=== PATIENT | female | born 1970 | race Caucasian/White ===

== ENCOUNTER 2020-07-06 19:09 | Emergency (ER) | payer OTHER, BC, SELFPAY ==
[2020-07-06 19:45] VITALS: BP 140/90; PULSE 71; RESP 16; TEMP 36.6; O2SAT 100
--- NOTE | 2020-07-06 20:04 | ED.GENADULT ---
HPI - General Adult General Chief complaint: Upper Respiratory Infection Stated complaint: Sore throat Time Seen by Provider: 07/06/20 20:04 Source: patient Mode of arrival: ambulatory Limitations: no limitations History of Present Illness HPI narrative: 49-year-old female patient presents to the [facility] with complaints of right-sided throat pain. Patient states that started today after she was eating lunch. Patient states that she felt like she swallowed something wrong where she felt like something got caught in the bottom of her throat. Patient states when she was younger she used to get tonsil stones a lot which felt very similar. Patient states that she tried to cough it out and ended up having a little bit of blood noted. Patient denies any fevers, runny nose. Denies any chest pain, shortness breath, abdominal pain, nausea, vomiting or diarrhea. Related Data Home Medications Medication Instructions Recorded Confirmed biotin 1 mg capsule 1 mg PO DAILY 05/11/20 05/11/20 calcium carbonate 600 mg (1,500 1 tablet PO DAILY 05/11/20 05/11/20 mg)-vitamin D3 200 unit tablet cranberry 500 mg capsule 500 mg PO DAILY cap 05/11/20 05/11/20 [id number] ac 400 1 tablet PO DAILY tablet 05/11/20 05/11/20 mcg-calcium carb 500 mg-vit K1 20 mcg tablet Allergies Allergy/AdvReac Type Severity Reaction Status Date / Time Sulfa (Sulfonamide Allergy Unknown Verified 10/07/19 07:56 Antibiotics) Review of Systems Review of Systems: Narrative: CONSTITUTIONAL: Denies fever, chills, or sweats. EYES: Denies visual changes, redness, or discharge. ENT: Denies rhinorrhea, congestion, positive sore throat, or otalgia. CARDIOVASCULAR: Denies chest pain, palpitations, or edema. RESPIRATORY: Denies cough or dyspnea. GASTROINTESTINAL: Denies abdominal pain, nausea, vomiting, or diarrhea. GENITOURINARY: Denies dysuria or hematuria. SKIN: Denies rash or itching. MUSCULOSKELETAL: Denies back pain, joint pain, or myalgia. NEUROLOGIC: Denies headache, numbness, or weakness. PSYCHIATRIC: Denies anxiety or depression. [facility] Family History Family History Other Depression Diabetes mellitus Family history of arthritis Family history of chronic obstructive pulmonary disease Family history of mental disorder Social History Social History Alcohol intake: current Comments At the time of my signature I agree with nursing past medical history, surgical, social, and family history. There is no relevant family history pertinent to the presenting complaint. Exam Narrative: Exam Narrative: GENERAL: Well-appearing, well-nourished, and in no acute distress. HEAD: Normocephalic, atraumatic. EYES: PERRLA and EOMI. ENT: Nares clear, no rhinorrhea or epistaxis. Mucous membranes moist. Posterior pharynx with very slight erythema noted to the right tonsil. No enlargement no exudates or lesions present. Bilateral TMs are clear with no erythema or foreign bodies in the canal. NECK: Supple. No lymphadenopathy CHEST: Clear to auscultation. No respiratory distress. HEART: Regular rate and rhythm. No murmur heard. Normal peripheral pulses. ABDOMEN: Soft, nontender, nondistended, normal active bowel sounds. EXTREMITIES: Normal range of motion. No edema. SKIN: Warm, dry, no rash. NEURO: No focal deficits. Alert and oriented x3. Course Vital Signs Vital signs: Vital Signs Temperature 36.6 C 07/06/20 19:45 Pulse Rate 71 07/06/20 19:45 Respiratory Rate 16 07/06/20 19:45 Blood Pressure 140/90 07/06/20 19:45 Pulse Oximetry 100 07/06/20 19:45 Temperature 36.6 C 07/06/20 19:45 Pulse Rate 71 07/06/20 19:45 Respiratory Rate 16 07/06/20 19:45 Blood Pressure 140/90 07/06/20 19:45 Pulse Oximetry 100 07/06/20 19:45 Vital signs reviewed. The patient has been informed that they may have pre-hyper
== END 2020-07-06 20:50 | disposition home or self-care (01) ==
PROVIDERS: Emergency Provider Nurse Practitioner Family; PCP Physician Assistant
DX: J02.9 Acute pharyngitis, unspecified (principal); E05.90 Thyrotoxicosis, unspecified without thyrotoxic crisis or storm
CPT/HCPCS: 87081; 87880; 99213; G0463

== ENCOUNTER 2021-12-11 10:16 | Outpatient (CLI) | payer OTHER, BC, SELFPAY ==
[2021-12-11 12:48] LABS: Anion Gap 12 mmol/L (8-16); Blood Urea Nitrogen 11 mg/dL (7-17); Calcium 9.7 mg/dL (8.4-10.2); Carbon Dioxide 26 mmol/L (22-30); Chloride 101 mmol/L (98-107); Estimated Glomerular Filt Rate > 60; Glucose 201 mg/dL (65-110); HDL Direct 45 mg/dL; Potassium 4.1 mmol/L (3.4-5.0); Sodium 139 mmol/L (137-145)
[2021-12-11 13:00] LABS: LDL Cholesterol Direct 149 mg/dL
[2021-12-11 13:04] LABS: Free T4 Free Thyroxine 1.36 ng/mL (0.78-2.19)
[2021-12-11 13:19] LABS: Thyroid Stimulating Hormone 0.316 uIU/mL (0.465-4.680)
[2021-12-11 13:42] LABS: Vitamin B12 > 1000.0 pg/mL (239-931)
[2021-12-11 14:01] LABS: Creatinine Urine 58.9 mg/dL
[2021-12-11 17:49] LABS: MALB Creatinine Ratio < 10.2 mg/g (0-30); Microalbumin Urine Random < 6.0 mg/L (0-16.7)
[2021-12-13 12:27] LABS: C-Peptide 2.48 ng/mL (0.80-3.85)
[2021-12-15 07:17] LABS: Glutamic acid decarboxylase AA >250 IU/mL (<5)
== END 2021-12-11 10:17 | disposition home or self-care (01) ==
LOC: ANHWCLAB 10:20
PROVIDERS: PCP Physician Assistant; Visit Provider Internal Medicine Endocrinology, Diabetes & Metabolism
DX: E11.65 Type 2 diabetes mellitus with hyperglycemia (principal); E05.90 Thyrotoxicosis, unspecified without thyrotoxic crisis or storm; L80 Vitiligo; E04.9 Nontoxic goiter, unspecified
CPT/HCPCS: 36415; 80048; 82043; 82607; 83718; 83721; 84439; 84443; 84481; 84681; 86341